=== PATIENT | male | born 1985 | race Caucasian/White ===

== ENCOUNTER 2023-08-02 18:32 | Emergency (ER) | payer SELFPAY | END 2023-08-02 21:23 | disposition left against medical advice (07) | LOC: ER 18:32 | DX: R09.81 Nasal congestion (principal); Z53.21 Procedure and treatment not carried out due to patient leaving prior to being seen by health care provider ==

== ENCOUNTER → 2023-08-02 | Emergency (ER) | payer OTHER | END | disposition left against medical advice (07) | LOC: ER 16:05 | DX: R09.89 Other specified symptoms and signs involving the circulatory and respiratory systems (principal); Z53.21 Procedure and treatment not carried out due to patient leaving prior to being seen by health care provider ==